=== PATIENT | female | born 1995 | race Caucasian/White ===

== ENCOUNTER 2020-11-16 10:23 | Emergency (ER) | payer OTHER ==
[~2020-11-16] VITALS: Ht 170.2 cm; Wt 86.4 kg
[2020-11-16 10:45] VITALS: BP 116/90
== END 2020-11-16 10:36 | disposition home or self-care (01) ==
LOC: EMS 10:26
DX: Z20.828 Contact with and (suspected) exposure to other viral communicable diseases (principal)
CPT/HCPCS: 99283; U0003